=== PATIENT | female | born 1965 | race Caucasian/White ===

== ENCOUNTER 2019-06-12 00:15 | Emergency (ER) | payer OTHER ==
[~2019-06-12] VITALS: Ht 170.2 cm; Wt 78.0 kg
[2019-06-12 00:19] VITALS: Ht 170.2 cm; Wt 78.0 kg
[2019-06-12 02:22] LABS: BASOPHIL % 0.2 % (0-2); PLATELET COUNT 339 x10^3mcL (130-400); RED CELL DISTRIBUTION WIDTH 12.8 % (11.5-14.5)
[2019-06-12 02:23] LABS: CALCIUM 9.1 mg/dL (8.5-10.1); CARBON DIOXIDE 30.4 mmol/L (21-32); CHLORIDE SERUM 105 mmol/L (98-107); GFR1 > 60 mL/min; GLUCOSE SERUM 114 mg/dL (74-106); POTASSIUM SERUM 4.1 mmol/L (3.5-5.1); SODIUM SERUM 143 mmol/L (136-145)
[2019-06-12 02:29] LABS: ALBUMIN 3.5 g/dL (3.4-5.0); ALKALINE PHOSPHATASE 69 U/L (46-116); ALT/SGPT 35 U/L (14-59); AST/SGOT 26 U/L (15-37); BILIRUBIN TOTAL 0.2 mg/dL (0.20-1.00); TOTAL PROTEIN, SERUM 6.9 g/dL (6.4-8.2)
[2019-06-12 03:58] VITALS: BP 104/62
== END 2019-06-12 03:58 | disposition home or self-care (01) ==
LOC: ED 00:15
PROVIDERS: Emergency Medicine
DX: R55 Syncope and collapse (principal); E86.0 Dehydration; S51.011A Laceration without foreign body of right elbow, initial encounter; E03.9 Hypothyroidism, unspecified; X58.XXXA Exposure to other specified factors, initial encounter; Y93.89 Activity, other specified; Y92.89 Other specified places as the place of occurrence of the external cause; Y99.8 Other external cause status
CPT/HCPCS: G0480; J7030; Q0092